=== PATIENT | female | born 1975 ===

== ENCOUNTER → 2017-05-18 | Outpatient (REF) ==
[~2017-05-18] MED LIST: BENADRYL25 M2; NO HOME MEDICATIONS; PHENERGAN 25 TA25 MG PO
== END ==
LOC: WSOH 12:50
DX: Z02.89 Encounter for other administrative examinations (principal)

== ENCOUNTER → 2017-07-22 | Outpatient (REF) | LOC: WSOH 07:45 | DX: Z02.89 Encounter for other administrative examinations (principal) ==

== ENCOUNTER 2018-03-09 07:29 | Day surgery (SDC) | payer BC ==
[~2018-03-09] VITALS: Ht 167.6 cm; Wt 67.7 kg
[2018-03-09 07:49] VITALS: BP 132/79; PULSE 64; TEMP 98
[2018-03-09 08:14] VITALS: BP 132/79; PULSE 64; TEMP 98
[2018-03-09] MEDS ORDERED: LINZESS145CAP (08:58)
[2018-03-09 10:57] VITALS: BP 107/70; PULSE 76
== END 2018-03-09 11:23 | disposition home or self-care (01) ==
LOC: SDCO 07:29 → MEDICAL 07:54 → SDCO 08:30
DX: K92.1 Melena (principal); K59.00 Constipation, unspecified; K64.1 Second degree hemorrhoids; K29.70 Gastritis, unspecified, without bleeding; K58.9 Irritable bowel syndrome, unspecified; R19.7 Diarrhea, unspecified; E03.9 Hypothyroidism, unspecified; I12.9 Hypertensive chronic kidney disease with stage 1 through stage 4 chronic kidney disease, or unspecified chronic kidney disease; N18.9 Chronic kidney disease, unspecified; Z90.49 Acquired absence of other specified parts of digestive tract; Z80.0 Family history of malignant neoplasm of digestive organs; Z83.71 Family history of colonic polyps
CPT/HCPCS: OP; J2704; J7030